=== PATIENT | male | born 1995 | race Caucasian/White ===

== ENCOUNTER 2017-02-21 21:03 | Emergency (ER) | payer OTHER ==
[2017-02-21 21:08] VITALS: BP 130/82; PULSE 118; RESP 24; TEMP 98.6; O2SAT 100
--- NOTE | 2017-02-21 21:38 | RADRPT ---
EXAM DATE/TIME: 02/21/2017 21:23 [place] COMPARISON: No previous studies available for comparison. INDICATIONS : Cough. Shortness of breath and vomiting also. MEDICAL HISTORY : None. SURGICAL HISTORY : None. ENCOUNTER: Initial ACUITY: 3 days PAIN SCORE: 0/10 LOCATION: Bilateral chest FINDINGS: PA and lateral views of the chest demonstrate the lungs to be symmetrically aerated without evidence of mass, infiltrate or effusion. The cardiomediastinal contours are unremarkable. Osseous structure s are intact. CONCLUSION: No acute disease. Norbert Robles Jr., MD on February 21, 2017 at 21:35 Board Certified Radiologist. This report was verified electronically.
[2017-02-21] MEDS ORDERED: KETOROLAC TROMETHAMINE 30 MG/ML (IVP) VIAL IV PUSH ONE (22:00)
[2017-02-21] MEDS ORDERED: methylPREDNISolone SOD SUCC 125 MG/2 ML VIAL IV PUSH ONE (22:00)
[2017-02-21] MEDS ORDERED: SODIUM CHLOR 0.9% 1000 ML INJ 1,000 ML IV ONE (22:00)
[2017-02-21] MEDS ORDERED: RESP: ALBUTEROL 2.5 MG/IPRATROPIUM 0.5 MG NEB (SCH) NEB ONE (22:00)
[2017-02-22] MEDS ORDERED: MEDR4PAK PO (00:20)
[2017-02-22] MEDS ORDERED: VENTAER INH (00:20)
--- NOTE | 2017-02-22 00:20 | PD ---
HPI . Cold/flu symptoms Chief Complaint: Cold / Flu Symptoms Time Seen by Provider: 21:21 Travel History International Travel<30 days: No Contact w/Intl Traveler<30days: No Traveled to known affect area: No History of Present Illness HPI 21-year-old male complains of generalized aches pains, cough, wheezing, shortness of breath, bilateral ear pain for the past 2 days. Patient has possible exposure to influenza. Patient has no significant travel history, no headaches no stiff neck no rashes and no documented fever. [facility] Past Medical History Narrative Medical Past medical history reviewed Diminished Hearing: No Social History Alcohol Use: No Tobacco Use: No Substance Use: No Allergies-Medications (Allergen,Severity, Reaction): Coded Allergies: No Known Allergies (Unverified , 02/21/17) Reported Meds & Prescriptions Reported Meds & Active Scripts Active No Active Prescriptions or Reported Medications Narrative Medication Allergies and medications reviewed Review of Systems Except as stated in HPI: all other systems reviewed are Neg General / Constitutional: Positive: Chills, No: Fever Eyes: No: Visual changes HENT: No: Headaches Cardiovascular: No: Chest Pain or Discomfort Respiratory: Positive: Cough, Wheezing, No: Shortness of Breath Gastrointestinal: No: Abdominal Pain Genitourinary: No: Dysuria Musculoskeletal: Positive: Myalgias, Arthralgias, No: Limited ROM, Pain Skin: No Rash Neurologic: No: Weakness Psychiatric: No: Depression Endocrine: No: Polydipsia Hematologic/Lymphatic: No: Easy Bruising Physical Exam Narrative GENERAL: Awake alert oriented 3 in no acute distress SKIN: Warm and dry. Color is sallow, no diaphoresis cyanosis HEAD: Atraumatic. Normocephalic. EYES: Pupils equal and round. No scleral icterus. No injection or drainage. ENT: No nasal bleeding or discharge. Mucous membranes pink and moist. NECK: Trachea midline. No JVD. Supple full range of motion CARDIOVASCULAR: Regular rate and rhythm. S1-S2 no murmurs or gallops RESPIRATORY: No accessory muscle use. Wheezing bilaterally with prolonged respiratory phase. Breath sounds equal bilaterally. GASTROINTESTINAL: Abdomen soft, non-tender, nondistended. Hepatic and splenic margins not palpable. MUSCULOSKELETAL: Extremities without clubbing, cyanosis, or edema. No obvious deformities. NEUROLOGICAL: Awake and alert. No obvious cranial nerve deficits. Motor grossly within normal limits. Five out of 5 muscle strength in the arms and legs. Normal speech. PSYCHIATRIC: Appropriate mood and affect; insight and judgment normal. Data Data Last Documented VS Vital Signs Date Time Temp Pulse Resp B/P (MAP) Pulse Ox O2 Delivery O2 Flow Rate FiO2 02/21/17 21:08 98.6 118 24 130/82 (98) 100 Orders Orders Chest, Pa & Lat (02/21/17 ) Iv Access Insert/Monitor (02/21/17 21:48) Influenzae A/B Antigen (02/21/17 21:48) Sodium Chlor 0.9% 1000 Ml Inj (Ns 1000 M (02/21/17 22:00) Ketorolac Inj (Toradol Inj) (02/21/17 22:00) Albuterol-Ipratropium Neb (Duoneb Neb) (02/21/17 22:00) Methylprednisolone So Succ Inj (Solumedr (02/21/17 22:00) MDM Medical Decision Making Medical Screen Exam Complete: Yes Emergency Medical Condition: Yes Medical Record Reviewed: Yes Differential Diagnosis Influenza, viral syndrome, acute bronchitis Narrative Course Influenza negative, patient improved with medications. Discharge Diagnosis Primary Impression: Upper respiratory infection Qualified Codes: J06.9 - Acute upper respiratory infection, unspecified; B97.89 - Other viral agents as the cause of diseases classified elsewhere Patient Instructions: General Instructions, Upper Respiratory Infection (ED) Additional Instructions: Medrol Dosepak as prescribed. Albuterol inhaler 2 puffs every 4-6 hours as needed for wheezing and cough. Recommend [id number] Advil or Tylenol cold and sinus for aches pains fever. Follow-up with your doctor. Drink plenty of fluids. Return for worsening Scripts Albuterol 18 GM Inh (Ventolin Hfa 18 GM Inh) 90 Mcg/Act Aer 2 PUFF INH Q4-6H Y for SHORTNESS OF BREATH, #1 INHALER 0 Refills Prov: Ashish Leger MD 02/22/17 Methylprednisolone Dosepak (Medrol Dosepak) 4 Mg Dspk 4 MG PO DIRECTED, #1 DSPK 0 Refills Per Pharmacist direction Prov: Ashish Leger MD 02/22/17 Disposition: 01 DISCHARGE HOME Condition: Stable Ashish Leger MD Feb 22, 2017 00:20
== END 2017-02-22 00:29 | disposition home or self-care (01) ==
LOC: NEPC 21:03
DX: J06.9 Acute upper respiratory infection, unspecified (principal); B97.89 Other viral agents as the cause of diseases classified elsewhere; H92.03 Otalgia, bilateral
CPT/HCPCS: 71046; 87804; 94664; 96374; 96375; 99284; J1885; J2930; J7030